=== PATIENT | male | born 1995 | race African-American/Black ===

== ENCOUNTER 2018-07-23 09:16 | Emergency (ER) | payer SELFPAY ==
[2018-07-23] MEDS ORDERED: Fluorescein Opthalmic Strip ONE (09:35)
[2018-07-23] MEDS ORDERED: Proparacaine 0.5% Opth 15 ML BOT ONE (09:35)
== END 2018-07-23 09:56 | disposition home or self-care (01) ==
LOC: SCSER 09:16
DX: H10.32 Unspecified acute conjunctivitis, left eye (principal); F98.8 Other specified behavioral and emotional disorders with onset usually occurring in childhood and adolescence
CPT/HCPCS: 99283

== ENCOUNTER 2018-11-05 20:00 | Observation (INO) | payer SELFPAY ==
[2018-11-05] MEDS ORDERED: Ondansetron PF 4 MG/2 ML Vial ONE (22:08)
[2018-11-05] MEDS ORDERED: Clindamycin/D5W 900 mg/50 ml Premix Bag ONE (22:08)
[2018-11-05] MEDS ORDERED: Morphine 4 MG/ML VIAL ONE (22:08)
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
[2018-11-06] MEDS ORDERED: hydrALAZINE 20 MG/ML VIAL SLOW IVP PRN (00:13)
[2018-11-06] MEDS ORDERED: Ondansetron ODT 4 MG TAB PO PRN (00:13)
[2018-11-06] MEDS ORDERED: Dextrose 5% in Water 1,000 ML IV PRN (00:13)
[2018-11-06] MEDS ORDERED: Cyclobenzaprine 10 MG TAB PO PRN (00:13)
[2018-11-06] MEDS ORDERED: Dextrose 50% Abboject 50 ML SYRINGE SLOW IVP PRN (00:13)
[2018-11-06] MEDS ORDERED: Ondansetron PF 4 MG/2 ML Vial IVP PRN (00:13)
[2018-11-06] MEDS ORDERED: Promethazine HCl 25 MG/ML VIAL IM PRN ×2 (00:13)
[2018-11-06] MEDS ORDERED: Chlorhexidine Gluconate 15 ML UDCUP SSP SCH (00:30)
[2018-11-06] MEDS ORDERED: Ketorolac Tromethamine 30 MG/ML VIAL IVP SCH (00:30)
[2018-11-06] MEDS: Acetaminophen 1,000 MG in Premix Bag 1 BAG IVPB SCH ×2 (00:45→05:35)
[2018-11-06] MEDS: Morphine 2 MG/ML SYRINGE SLOW IVP PRN (00:45)
[2018-11-06] MEDS: Sodium Chloride 0.9% 1,000 ML IV SCH ×2 (00:46→10:40)
[2018-11-06] MEDS: Communication Order-Pharmacy FS SCH (05:18)
[2018-11-06 05:33] LABS: #Basophils 0.1 thou/uL (0.0-0.2); #Eosinphils 0.1 thou/uL (0.0-0.7); #Lymphocytes 2.7 thou/uL (1.20-3.40); #Monocytes 1.8 thou/uL (0.11-0.59); #Neutrophils 12.1 thou/uL (1.40-6.50); %Basophils 0.4 % (0.0-1.0); %Eosinophils 0.6 % (0.0-10.0); %Lymphocytes 16.3 % (21.0-51.0); %Monocytes 10.8 % (0.0-10.0); %Neutrophils 71.8 % (42.0-75.0); Hemoglobin 15.7 g/dL (14.0-18.0); Mean Corpuscular HGB CONC 32.8 g/dL (32.0-36.0); Mean Corpuscular Hemoglobin 29.4 pg (27.0-31.0); Mean Corpuscular Volume 89.8 fL (78.0-98.0); Mean Platelet Volume 9.5 fL (7.4-10.4); Platelet Count 130 thou/uL (130-400); RBC Distribution Width 13.3 % (11.5-14.5); Red Blood Cell (RBC) Count 5.33 mill/uL (4.70-6.10); White Blood Cell (WBC) Count 16.8 thou/uL (4.8-10.8)
[2018-11-06] MEDS: Chlorhexidine Gluconate 15 ML UDCUP SSP SCH ×3 (05:35→21:45)
[2018-11-06] MEDS: Clindamycin/D5W 900 MG in Premix Bag 1 BAG IVPB SCH ×3 (05:35→21:46)
[2018-11-06] MEDS: Ketorolac Tromethamine 30 MG/ML VIAL IVP SCH ×4 (05:35→23:32)
[2018-11-06 05:45] LABS: Anion Gap 15 mmol/L (10-20); BUN (Urea Nitrogen) 9 mg/dL (8.9-20.6); Calc. Creatinine Clearance 111 mL/min (70-130); Calcium 9.5 mg/dL (7.8-10.44); Carbon Dioxide 21 mmol/L (22-29); Chloride 103 mmol/L (98-107); Estimated GFR-MDRD Greater than 90; Glucose 78 mg/dL (70-105); Potassium 3.9 mmol/L (3.5-5.1); Sodium 135 mmol/L (136-145)
[2018-11-06] MEDS ORDERED: Acetaminophen 500 MG TAB PO SCH (06:45)
[2018-11-06] MEDS: Famotidine/PF 20 mg/2ml Vial SLOW IVP SCH ×2 (08:47→21:45)
[2018-11-06] MEDS ORDERED: ISOVUE-370 76%-LOCM 1 ML ONE (09:41)
[2018-11-06] MEDS ORDERED: Ondansetron PF 4 MG/2 ML Vial ONE (10:23)
[2018-11-06] MEDS ORDERED: Lidocaine 1% PF 5 ML VIAL ONE (10:23)
[2018-11-06] MEDS ORDERED: Dexamethasone 20 MG/5 ML VIAL ONE (10:23)
[2018-11-06] MEDS ORDERED: PROPOFOL 200 MG/20 ML VIAL ONE (10:23)
[2018-11-06] MEDS ORDERED: Rocuronium Bromide 10 MG/ML (10ML VIAL) ONE (10:23)
[2018-11-06] MEDS ORDERED: Glycopyrrolate 0.2 MG/ML 5 ML SYRINGE ONE (10:23)
[2018-11-06] MEDS: Acetaminophen 500 MG TAB PO SCH ×2 (12:10→19:14)
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
[2018-11-06] MEDS ORDERED: Midazolam HCl 2 mg/2 ml Vial ONE (14:21)
[2018-11-06] MEDS ORDERED: Lidocaine 2% Jelly 5 ML TUBE ONE (14:21)
[2018-11-06] MEDS ORDERED: Fentanyl 250 MCG/5 ML VIAL ONE (14:21)
[2018-11-06] MEDS ORDERED: Oxymetazoline HCl 0.05% ( 15 ML ) ONE (14:26)
[2018-11-06] MEDS ORDERED: Chlorhexidine Gluconate 15 ML UDCUP SSP ONE ×2 (14:30)
[2018-11-06] MEDS ORDERED: Hydrocortisone 1% Cream 30 GM TUBE ONE (14:30)
[2018-11-06] MEDS ORDERED: Lidocaine 1% w/Epinephrine 1:100K 20 ML VIAL ONE (14:30)
[2018-11-06] MEDS ORDERED: Clindamycin/D5W 900 mg/50 ml Premix Bag ONE (14:57)
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
[2018-11-06] MEDS ORDERED: Bupivacaine/Epinephrine 0.25% 30 ML VIAL ONE (15:47)
[2018-11-06] MEDS ORDERED: Bacitracin Zinc Ointment 30 gm TUBE ONE (17:58)
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
[2018-11-06] MEDS: Bacitracin Zinc Ointment 30 gm TUBE TOP SCH (21:47)
[2018-11-06] MEDS: Acetaminophen 650 MG/20.3 ML UDCUP PO SCH (23:31)
[2018-11-07] MEDS: Morphine 2 MG/ML SYRINGE SLOW IVP PRN (00:55)
[2018-11-07] MEDS: Communication Order-Pharmacy FS SCH (02:39)
[2018-11-07] MEDS: Acetaminophen 650 MG/20.3 ML UDCUP PO SCH (06:40)
[2018-11-07] MEDS: Chlorhexidine Gluconate 15 ML UDCUP SSP SCH (06:41)
[2018-11-07] MEDS: Ketorolac Tromethamine 30 MG/ML VIAL IVP SCH (06:41)
[2018-11-07] MEDS: Clindamycin/D5W 900 MG in Premix Bag 1 BAG IVPB SCH (06:41)
[2018-11-07] MEDS: Famotidine/PF 20 mg/2ml Vial SLOW IVP SCH (08:51)
[2018-11-07] MEDS: Bacitracin Zinc Ointment 30 gm TUBE TOP SCH (08:51)
[2018-11-07 11:33] VITALS: BP 118/75; TEMP 98
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
== END 2018-11-07 13:48 | disposition home or self-care (01) ==
LOC: ERS 20:00 → SURG A 21:50
PROVIDERS: ADMIT Specialist; ATTEND Dentist Oral and Maxillofacial Surgery
PROC: 0NSV04Z Reposition Left Mandible with Internal Fixation Device, Open Approach (ICD-10-PCS; principal; 2018-11-07)
PROC: 0NST04Z Reposition Right Mandible with Internal Fixation Device, Open Approach (ICD-10-PCS; 2018-11-07)
PROC: 2W31X9Z Immobilization of Face using Wire (ICD-10-PCS; 2018-11-07)
DX: S02.601A Fracture of unspecified part of body of right mandible, initial encounter for closed fracture (principal); S02.642A Fracture of ramus of left mandible, initial encounter for closed fracture; S02.622A Fracture of subcondylar process of left mandible, initial encounter for closed fracture; G89.11 Acute pain due to trauma; F17.290 Nicotine dependence, other tobacco product, uncomplicated; F90.9 Attention-deficit hyperactivity disorder, unspecified type; Z88.0 Allergy status to penicillin; Z79.899 Other long term (current) drug therapy; Y04.2XXA Assault by strike against or bumped into by another person, initial encounter
CPT/HCPCS: 36415; 70487; 80048; 85025; 96361; 96365; 96366; 96375; 96376; C1713; G0378; G0390; J0131; J1100; J1885; J2001; J2250; J2270; J2405; J2704; J3010; J3490; Q9966; S0028

== ENCOUNTER 2019-02-26 02:37 | Emergency (ER) | payer SELFPAY ==
[2019-02-26] MEDS ORDERED: Ondansetron PF 4 MG/2 ML Vial ONE (02:57)
== END 2019-02-26 04:00 | disposition home or self-care (01) ==
LOC: ERS 02:37
DX: F10.129 Alcohol abuse with intoxication, unspecified (principal); F90.9 Attention-deficit hyperactivity disorder, unspecified type
CPT/HCPCS: 96374; J2405

== ENCOUNTER 2019-06-03 02:39 | Emergency (ER) | payer SELFPAY ==
[2019-06-03] MEDS ORDERED: Adacel (T-DAP) 0.5 ML SYRINGE ONE (04:21)
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
== END 2019-06-03 07:20 | disposition home or self-care (01) ==
LOC: ERS 02:39
DX: S66.122A Laceration of flexor muscle, fascia and tendon of right middle finger at wrist and hand level, initial encounter (principal); S66.124A Laceration of flexor muscle, fascia and tendon of right ring finger at wrist and hand level, initial encounter; F98.8 Other specified behavioral and emotional disorders with onset usually occurring in childhood and adolescence; F17.210 Nicotine dependence, cigarettes, uncomplicated; W26.0XXA Contact with knife, initial encounter
CPT/HCPCS: 12002; 90471; 90715